=== PATIENT | female | born 1985 | race African-American/Black ===

== ENCOUNTER 2017-07-09 22:57 | Emergency (ER) | payer OTHER, MEDICAID ==
[~2017-07-09] VITALS: Ht 165.1 cm; Wt 113.4 kg
[2017-07-09 23:22] VITALS: BP 127/78
[2017-07-10] MEDS ORDERED: BACLOFEN 10 MG TAB PO ONE (02:45)
[2017-07-10] MEDS ORDERED: IBUPROFEN 600 MG TAB PO ONE (02:45)
== END 2017-07-10 03:08 | disposition home or self-care (01) ==
LOC: ER 23:00
DX: S46.812A Strain of other muscles, fascia and tendons at shoulder and upper arm level, left arm, initial encounter (principal); V49.40XA Driver injured in collision with unspecified motor vehicles in traffic accident, initial encounter; Y93.I9 Activity, other involving external motion; Y92.89 Other specified places as the place of occurrence of the external cause; Y99.8 Other external cause status
CPT/HCPCS: 99283; J7030

== ENCOUNTER 2018-05-21 10:09 | Emergency (ER) | payer MEDICAID, OTHER ==
[~2018-05-21] VITALS: Ht 167.6 cm; Wt 112.0 kg
[2018-05-21 10:14] VITALS: BP 127/75
== END 2018-05-21 11:06 | disposition home or self-care (01) ==
LOC: ER 10:12
DX: R22.2 Localized swelling, mass and lump, trunk (principal); Z88.6 Allergy status to analgesic agent

== ENCOUNTER 2018-05-23 20:38 | Emergency (ER) | payer MEDICAID ==
[~2018-05-23] VITALS: Ht 167.6 cm; Wt 111.6 kg
[2018-05-23 21:10] VITALS: BP 120/77
[2018-05-23] MEDS ORDERED: cefTRIAXone SOD 1,000 MG VL IM ONE (21:45)
== END 2018-05-23 23:00 | disposition home or self-care (01) ==
LOC: ER 20:38
DX: L02.213 Cutaneous abscess of chest wall (principal); Z88.8 Allergy status to other drugs, medicaments and biological substances
CPT/HCPCS: 10060; 96372; 99283; J0696

== ENCOUNTER 2018-05-25 15:37 | Emergency (ER) | payer MEDICAID ==
[~2018-05-25] VITALS: Ht 167.6 cm; Wt 111.6 kg
[2018-05-25 15:56] VITALS: BP 110/57
== END 2018-05-25 17:28 | disposition home or self-care (01) ==
LOC: ER 15:37
DX: L02.213 Cutaneous abscess of chest wall (principal)

== ENCOUNTER 2020-09-13 17:34 | Emergency (ER) | payer MEDICAID ==
[~2020-09-13] VITALS: Ht 167.6 cm; Wt 112.5 kg
[2020-09-13 18:03] VITALS: BP 110/48
== END 2020-09-13 20:43 | disposition home or self-care (01) ==
LOC: ER 17:34
DX: J20.9 Acute bronchitis, unspecified (principal); F17.210 Nicotine dependence, cigarettes, uncomplicated; Z20.828 Contact with and (suspected) exposure to other viral communicable diseases
CPT/HCPCS: 36415; 71045; 87426

== ENCOUNTER 2021-04-08 11:33 | Emergency (ER) | payer MEDICAID ==
[~2021-04-08] VITALS: Ht 167.6 cm; Wt 116.1 kg
[2021-04-08] MEDS ORDERED: KETOROLAC TROMETH 60MG/2ML VIAL IM ONE (15:00)
[2021-04-08 15:13] VITALS: BP 151/90
== END 2021-04-08 15:42 | disposition home or self-care (01) ==
LOC: ER 11:33
DX: G43.909 Migraine, unspecified, not intractable, without status migrainosus (principal); F17.210 Nicotine dependence, cigarettes, uncomplicated; Z88.8 Allergy status to other drugs, medicaments and biological substances; Z98.890 Other specified postprocedural states
CPT/HCPCS: 70450; 96372; 99284; J1885